=== PATIENT | male | born 1980 | race Caucasian/White ===

== ENCOUNTER 2019-06-07 13:15 | Emergency (ER) | payer SELFPAY ==
[2019-06-07 13:28] LABS: #Basophils 0.1 thou/uL (0.0-0.2); #Eosinphils 0.1 thou/uL (0.0-0.7); #Monocytes 0.6 thou/uL (0.11-0.59); #Neutrophils 6.3 thou/uL (1.40-6.50); %Basophils 1.1 % (0.0-1.0); %Eosinophils 0.6 % (0.0-10.0); %Lymphocytes 29.9 % (21.0-51.0); %Monocytes 5.7 % (0.0-10.0); %Neutrophils 62.8 % (42.0-75.0); Hemoglobin 13.4 g/dL (14.0-18.0); Mean Corpuscular HGB CONC 32.9 g/dL (32.0-36.0); Mean Corpuscular Hemoglobin 30.4 pg (27.0-31.0); Mean Corpuscular Volume 92.5 fL (78.0-98.0); Mean Platelet Volume 5.7 fL (7.4-10.4); Platelet Count 318 thou/uL (130-400); Red Blood Cell (RBC) Count 4.41 mill/uL (4.70-6.10)
[2019-06-07] MEDS ORDERED: Morphine 4 MG/ML VIAL ONE (13:30)
[2019-06-07] MEDS ORDERED: Morphine 2 MG/ML SYRINGE ONE (13:31)
[2019-06-07 13:34] LABS: PTT 29.9 SEC (22.9-36.1)
[2019-06-07] MEDS ORDERED: Ondansetron PF 4 MG/2 ML Vial ONE (13:38)
[2019-06-07] MEDS ORDERED: Adacel (T-DAP) 0.5 ML SYRINGE ONE (13:38)
[2019-06-07 13:43] LABS: ALT (SGPT) 18 U/L (8-55); AST (SGOT) 17 U/L (5-34); Albumin 4.3 g/dL (3.5-5.0); Alkaline Phosphatase 75 U/L (40-110); Anion Gap 16 mmol/L (10-20); BUN (Urea Nitrogen) 23 mg/dL (8.9-20.6); Bilirubin, Total 0.3 mg/dL (0.2-1.2); Calc. Creatinine Clearance 0 mL/min (70-130); Calcium 9.1 mg/dL (7.8-10.44); Carbon Dioxide 24 mmol/L (22-29); Chloride 103 mmol/L (98-107); Estimated GFR-MDRD 87; Globulin 2.6 g/dL (2.4-3.5); Glucose 99 mg/dL (70-105); Potassium 3.5 mmol/L (3.5-5.1); Protein, Total 6.9 g/dL (6.0-8.3); Sodium 139 mmol/L (136-145)
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
[2019-06-07] MEDS ORDERED: CEFAZOLIN 1 GM VIAL ONE (14:06)
[2019-06-07] MEDS ORDERED: Sodium Chloride 0.9% 200 ML ONE (14:07)
[2019-06-07] MEDS ORDERED: Bacitracin 1 PK ONE (14:40)
== END 2019-06-07 16:10 | disposition home or self-care (01) ==
LOC: MADERS 13:15 → EDBD 13:15 → MADERS 16:10
DX: S92.252B Displaced fracture of navicular [scaphoid] of left foot, initial encounter for open fracture (principal); F17.210 Nicotine dependence, cigarettes, uncomplicated; W34.00XA Accidental discharge from unspecified firearms or gun, initial encounter
CPT/HCPCS: 28450; 36415; 80053; 85025; 85610; 85730; 90471; 90715; 96365; 96375; J0690; J2270; J2405; J3490

== ENCOUNTER 2020-03-15 18:25 | Emergency (ER) | payer SELFPAY ==
[2020-03-16 14:20] LABS: SARS-CoV-2 PCR by NAA Not Detected (NotDetected)
== END 2020-03-15 19:20 | disposition home or self-care (01) ==
LOC: MADERS 18:25
DX: R50.9 Fever, unspecified (principal); R05 Cough; Z20.822 Contact with and (suspected) exposure to COVID-19; F17.210 Nicotine dependence, cigarettes, uncomplicated
CPT/HCPCS: 87635; 87804; 99283; U0003; U0005

== ENCOUNTER 2023-08-13 21:53 | Emergency (ER) | payer OTHER, SELFPAY ==
[2023-08-13] MEDS ORDERED: HYDROcodone/Acetaminophen 5/325 mg Tablet ONE (23:36)
== END 2023-08-13 23:44 | disposition home or self-care (01) ==
LOC: MADERS 21:53
DX: S22.41XA Multiple fractures of ribs, right side, initial encounter for closed fracture (principal); S22.049A Unspecified fracture of fourth thoracic vertebra, initial encounter for closed fracture; F17.210 Nicotine dependence, cigarettes, uncomplicated; V89.9XXA Person injured in unspecified vehicle accident, initial encounter
CPT/HCPCS: 71250